=== PATIENT | female | born 1990 | race Hispanic/Latino ===

== ENCOUNTER 2018-06-24 13:30 | Emergency (ER) | payer OTHER, SELFPAY ==
[2018-06-24] MEDS ORDERED: Acetaminophen/Codeine 30-300mg Tablet ONE (15:02)
[2018-06-24] MEDS ORDERED: Azithromycin 250 MG TAB ONE (15:03)
[2018-06-24] MEDS ORDERED: Dexamethasone 4 MG TAB ONE (15:03)
[2018-06-24] MEDS ORDERED: Benzonatate 100 MG CAP ONE (15:03)
--- NOTE | 2018-06-24 15:12 | RAD ---
CHEST 2 VIEWS: Date: 06/24/18 COMPARISON: None. HISTORY: Cough, fever. FINDINGS: Midline sternotomy wires are present. Heart and mediastinal contours are grossly unremarkable. The zeke ngs appear clear. No acute osseous abnormality. IMPRESSION: No acute findings. POS: [facility]
== END 2018-06-24 15:12 | disposition home or self-care (01) ==
LOC: EDBD 13:30 → MADERS 13:30
DX: J18.9 Pneumonia, unspecified organism (principal); S61.411A Laceration without foreign body of right hand, initial encounter; X58.XXXA Exposure to other specified factors, initial encounter
CPT/HCPCS: 71046; 87804; 99283; J8540

== ENCOUNTER 2020-09-14 11:28 | Outpatient (CLI) | payer OTHER, MEDICARE | END 2020-09-14 11:29 | disposition home or self-care (01) | LOC: MADLAB 11:28 | PROVIDERS: ATTEND Family Medicine | DX: R07.81 Pleurodynia (principal) ==

== ENCOUNTER 2020-12-01 19:20 | Emergency (ER) | payer MEDICARE, OTHER ==
[2020-12-01 20:01] LABS: #Monocytes 0.5 thou/uL (0.11-0.59); #Neutrophils 8.2 thou/uL (1.40-6.50); %Basophils 0.4 % (0.0-1.0); %Eosinophils 0.4 % (0.0-10.0); %Lymphocytes 9.9 % (21.0-51.0); %Monocytes 4.9 % (0.0-10.0); %Neutrophils 84.4 % (42.0-75.0); Mean Corpuscular HGB CONC 32.8 g/dL (32.0-36.0); Mean Corpuscular Hemoglobin 31.7 pg (27.0-31.0); Mean Corpuscular Volume 96.8 fL (78.0-98.0); Mean Platelet Volume 7.8 fL (7.4-10.4); Platelet Count 249 thou/uL (130-400); Red Blood Cell (RBC) Count 4.74 mill/uL (4.20-5.40); White Blood Cell (WBC) Count 9.8 thou/uL (4.8-10.8)
[2020-12-01] MEDS ORDERED: Ondansetron ODT 4 MG TAB ONE (20:09)
[2020-12-01 20:16] LABS: ALT (SGPT) 88 U/L (8-55); AST (SGOT) 154 U/L (5-34); Alkaline Phosphatase 106 U/L (40-110); Anion Gap 14 mmol/L (10-20); BUN (Urea Nitrogen) 17 mg/dL (7.0-18.7); Bilirubin, Total 0.6 mg/dL (0.2-1.2); CK (CPK) 57 U/L (29-168); Calc. Creatinine Clearance 0 mL/min (70-130); Calcium 9.1 mg/dL (7.8-10.44); Carbon Dioxide 26 mmol/L (22-29); Chloride 105 mmol/L (98-107); Globulin 3.3 g/dL (2.4-3.5); Glucose 99 mg/dL (70-105); Magnesium 2.3 mg/dL (1.6-2.6); Potassium 3.8 mmol/L (3.5-5.1); Protein, Total 7.3 g/dL (6.0-8.3); Sodium 141 mmol/L (136-145)
[2020-12-01 20:44] LABS: Bilirubin Negative (Negative); Blood, Urine Negative (Negative); Clarity Clear (Clear); Glucose, Urine (Dipstick) Negative (Negative); Ketone, Urine Negative (Negative); Leukocyte Negative (Negative); Nitrite Negative (Negative); Protein, Urine (Dipstick) Negative (Neg-Trace); Specific Gravity, Urine 1.032 (1.002-1.036); pH, Urine 5.5 (5.0-9.0)
== END 2020-12-01 21:22 | disposition short-term general hospital (02) ==
LOC: MADERS 19:20
DX: R11.2 Nausea with vomiting, unspecified (principal); R10.84 Generalized abdominal pain; R94.5 Abnormal results of liver function studies
CPT/HCPCS: 36415; 80053; 81003; 82550; 83735; 84484; 85025; 93005; Q0162

== ENCOUNTER 2021-09-17 10:22 | Outpatient (CLI) | payer MEDICARE | END 2021-09-17 10:23 | disposition home or self-care (01) | LOC: MADLAB 10:22 → MADEKG 10:23 | PROVIDERS: ATTEND Family Medicine | DX: R00.1 Bradycardia, unspecified (principal) | CPT/HCPCS: 93005; 93010 ==

== ENCOUNTER 2024-02-27 21:49 | Emergency (ER) | payer OTHER, MEDICAID ==
[2024-02-27] MEDS ORDERED: Naproxen 500 MG TAB ONE (23:33)
== END 2024-02-27 23:43 | disposition home or self-care (01) ==
LOC: MADERS 21:49
DX: S16.1XXA Strain of muscle, fascia and tendon at neck level, initial encounter (principal); Q90.9 Down syndrome, unspecified; X58.XXXA Exposure to other specified factors, initial encounter
CPT/HCPCS: 99283

== ENCOUNTER 2024-09-14 15:24 | Outpatient (CLI) | payer OTHER | END 2024-09-14 15:25 | disposition home or self-care (01) | LOC: MADRAD 15:24 | PROVIDERS: ATTEND Family Medicine | DX: R07.81 Pleurodynia (principal) ==